=== PATIENT | male | born 1970 | race Caucasian/White ===

== ENCOUNTER 2016-09-08 22:32 | Inpatient (IN) | payer OTHER ==
[~2016-09-08 22:32] MED LIST: ACYC800T PO; BACT800T5 PO; CETI10 PO; CICL8SOL TOP; FLUC150T PO; KETO2CRE TOP; LOPE2CAP PO; SIMV10TA PO
[2016-09-08 22:50] VITALS: BP 144/92; PULSE 71; RESP 20; TEMP 98; O2SAT 97
[2016-09-09] MEDS ORDERED: LORazepam 2 MG/ML VIAL IM PRN (00:30)
[2016-09-09] MEDS ORDERED: MAGNESIUM HYDROXIDE SUSP 30 ML CUP PO PRN (00:30)
[2016-09-09] MEDS ORDERED: ACETAMINOPHEN 325 MG TAB PO PRN (00:30)
[2016-09-09] MEDS ORDERED: ALUMINUM/MAGNESIUM/SIMETH 30 ML CUP PO PRN (00:30)
[2016-09-09] MEDS: LORazepam 1 MG TAB PO PRN (00:37)
[2016-09-09 05:28] VITALS: BP 131/71; PULSE 53; RESP 17; TEMP 98; O2SAT 97
[2016-09-09 17:57] VITALS: BP 112/65; PULSE 68; RESP 16; TEMP 98.2; O2SAT 96
[2016-09-09] MEDS ORDERED: diphenhydrAMINE HCL 50 MG CAP PO PRN (18:45)
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
[2016-09-09] MEDS: QUEtiapine FUMARATE 100 MG TAB PO SCH (21:28)
[2016-09-09] MEDS: buPROPion HCL 75 MG TAB PO SCH (21:28)
[2016-09-09 22:07] LABS: BLOOD, URINE SMALL (NEG); GLUCOSE,URINE NEG (NEG); KETONE, URINE NEG (NEG); NITRITE,URINE NEG (NEG); PH, URINE 5.5 (5.0-8.5); SQUAMOUS EPITHELIAL CELL URINE <1 /hpf (0-5); URINE COLOR LIGHT-YELLOW (YELLW/STRAW)
[2016-09-09 22:12] LABS: COMMENT (UR) CULT NOT INDICATED; CULTURE IF INDICATED CULT NOT INDICATED
[2016-09-09 22:31] LABS: AMPHETAMINE, URINE NEG (NEG); BARBITURATES, URINE NEG (NEG); COCAINE, URINE NEG (NEG)
[2016-09-10 04:57] VITALS: BP 105/66; PULSE 62; RESP 18; TEMP 98; O2SAT 98
[2016-09-10] MEDS: buPROPion HCL 75 MG TAB PO SCH ×2 (08:29→21:41)
[2016-09-10 10:13] LABS: AUTOMATED NEUTROPHIL # 4.6 TH/MM3 (1.8-7.7); BASOPHIL # 0.1 TH/MM3 (0-0.2); BASOPHIL % 0.9 % (0.0-2.0); EOSINOPHIL # 0.3 TH/MM3 (0-0.4); EOSINOPHIL % 4.2 % (0.0-4.0); LYMPH % 31.1 % (9.0-44.0); LYMPHOCYTE # 2.5 TH/MM3 (1.0-4.8); MEAN CELL VOLUME 88.2 FL (80.0-100.0); MEAN CORPUSCULAR HEMOGLOBIN 29.9 PG (27.0-34.0); MEAN CORPUSCULAR HGB CONC 33.9 % (32.0-36.0); MONO % 7.9 % (0.0-8.0); NEUT % 55.9 % (16.0-70.0); PLATELET COUNT 229 TH/MM3 (150-450); RED BLOOD COUNT 5.45 MIL/MM3 (4.50-5.90); RED CELL DISTRIBUTION WIDTH 13.3 % (11.6-17.2); WHITE BLOOD COUNT 8.1 TH/MM3 (4.0-11.0)
[2016-09-10 10:26] LABS: HEMO FLAGS AUTO DIFF
[2016-09-10 10:41] LABS: BICARBONATE 26.9 MEQ/L (21.0-32.0); POTASSIUM 3.7 MEQ/L (3.5-5.1)
[2016-09-10 10:54] LABS: INDIRECT BILIRUBIN 0.3 MG/DL (0.0-0.8); TOTAL BILIRUBIN ADULT 0.4 MG/DL (0.2-1.0)
[2016-09-10 12:02] LABS: BANDS 1 % (0-6); BASOPHILS 2 % (0-2); EOSINOPHILS 8 % (0-4); MYELOCYTES 5 % (0-0); NEUTROPHIL # MANUAL DIFF 4.1 TH/MM3 (1.8-7.7); PLATELET ESTIMATE SMEAR NORMAL (NORMAL); PLATELET MORPHOLOGY NORMAL (NORMAL); POLYS (SEG NEUTROPHILS) 45 % (16-70); SCAN/DIFF FINAL DIFF MANUAL; WBC DIFF SAMPLE 100
--- NOTE | 2016-09-10 14:45 | EKG ---
Date Performed: 09/10/2016 Time Performed: 09:55:33 PTAGE: 46 years EKG: Sinus rhythm NORMAL ECG NO PREVIOUS TRACING DOCTOR: Myranda Clarke Interpretating Date/Time 09/10/2016 14:44:37
[2016-09-10 16:42] VITALS: BP 133/79; PULSE 74; RESP 18; TEMP 99.4; O2SAT 98
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
[2016-09-10] MEDS: QUEtiapine FUMARATE 100 MG TAB PO SCH (21:41)
[2016-09-11 05:22] VITALS: BP 104/64; PULSE 63; RESP 18; TEMP 97.8; O2SAT 97
[2016-09-11] MEDS: buPROPion HCL 75 MG TAB PO SCH ×2 (09:30→22:32)
[2016-09-11] MEDS: LORazepam 1 MG TAB PO PRN (12:37)
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
[2016-09-11] MEDS ORDERED: PERMETHRIN 5% CREAM 60 GM TOPICAL ONE (16:30)
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
[2016-09-11 17:52] VITALS: BP 129/79; PULSE 76; RESP 18; TEMP 97.5; O2SAT 98
[2016-09-11] MEDS: CALCIPOTRIENE 0.005% CREAM 60 GM TOPICAL SCH (21:00)
[2016-09-11 22:28] LABS: HEMOGLOBIN A1a 0.8 %; HEMOGLOBIN A1b 1.2 %; HEMOGLOBIN Ao 86.3 %; HEMOGLOBIN F 0.9 %; HEMOGLOBIN LA1C 1.2 %; HEMOGLOBIN P3 3.3 %
[2016-09-11] MEDS: QUEtiapine FUMARATE 25 MG TAB PO SCH (22:32)
[2016-09-12 06:31] VITALS: BP 102/62; PULSE 56; RESP 16; TEMP 98; O2SAT 100
[2016-09-12] MEDS: buPROPion HCL 75 MG TAB PO SCH ×2 (08:47→20:53)
[2016-09-12] MEDS: QUEtiapine FUMARATE 25 MG TAB PO SCH ×2 (08:47→20:53)
[2016-09-12] MEDS: CALCIPOTRIENE 0.005% CREAM 60 GM TOPICAL SCH ×2 (09:00→21:00)
--- NOTE | 2016-09-12 09:44 | HHI.PR ---
Subjective Remarks Patient in nad. No n/v/d/c. Itching is improved. Rash the same. Patient is depressed however would like to go out of the room. Objective Vitals Vital Signs Date Time Temp Pulse Resp B/P Pulse Ox O2 Delivery O2 Flow Rate FiO2 09/12/16 06:31 98.0 56 16 102/62 100 09/11/16 17:52 97.5 76 18 129/79 98 Result Diagram: 09/10/1619 09/10/16918 Objective Remarks GENERAL: This is a well-nourished, well-developed patient, in no apparent distress. Awake and alert. SKIN: Dry eczematous skin over the backs of both hands specifically the knuckles with scattered erythematous papular rash. Questionable intertriginous burrowing noted. Scattered erythematous papular rash over left buttock. White scaly plaque noted over the right elbow. CARDIOVASCULAR: Regular rate and rhythm without murmurs, gallops, or rubs. RESPIRATORY: Clear to auscultation. Breath sounds equal bilaterally. No wheezes , rales, or rhonchi. GASTROINTESTINAL: Abdomen soft, non-tender, nondistended. No hepato-splenomegaly , or palpable masses. No guarding. MUSCULOSKELETAL: Extremities without clubbing, cyanosis, or edema. No joint tenderness, effusion, or edema noted. No calf tenderness. NEUROLOGICAL: Awake and alert. Able to move all extremities. Normal speech. A/P Assessment and Plan 46-year-old male with a past medical history significant for prediabetes, osteoarthritis and dyslipidemia who was admitted to the psychiatric unit for suicidal ideation. Hospitalist services have been consulted for possible psoriatic plaques on the elbows and hands. Depression Suicidal ideation Management per psychiatric team Scabies Contact isolation Treated with permethrin Benadryl by mouth as needed Possible psoriatic arthritis Calcipotriene topically Follow-up with primary care physician and/or prototype machinist as outpatient. Prediabetes Obtain hemoglobin A1c Random glucose 101 Hyperlipidemia Obtain fasting lipid panel DVT prophylaxis Patient is ambulatory Thank you for this consultation. We will follow this patient along with you. Discussed Condition With Nurse, patient Ambreen Fraser MD Sep 12, 2016 09:44
--- NOTE | 2016-09-12 15:08 | HHI.PYPN ---
Subjective Remarks Patient was seen and case discussed with nursing. Patient's lab work came back with a high triglycerides of a 822. Patient is pleasant and cooperative with exam. He remains with psychomotor retardation, blunted affect and depressed mood. Says the reason for his suicide attempt was "I am a loser." He remains on isolation for possible scabies. Denies suicidal or homicidal ideation intent or plan. Auditory hallucinations to hurt himself. Mood remains depressed. Says he is sleeping well. Objective Alert: Yes [place]: Person, Place, Date, Situation Mood: Depressed Affect: Other (dysthymic) Memory Intact: Immediate, Recent, Remote Hallucinations: Auditory (command auditory hallucinations to kill himself) Delusions: No Delusion Type: Other Suicidal: Intent (denies), Plan (denies), Ideation (denies) Homicidal: Ideation (denies) Insight/Judgment Fair Labs Test 09/12/16 11:27 Triglycerides Level 822 MG/DL Cholesterol Level 239 MG/DL LDL Cholesterol MG/DL HDL Cholesterol 35.0 MG/DL Cholesterol/HDL Ratio 6.82 RATIO Vitals/IOs Vital Signs Date Time Temp Pulse Resp B/P Pulse Ox O2 Delivery O2 Flow Rate FiO2 09/12/16 06:31 98.0 56 16 102/62 100 Assessment & Plan Problem List: (1) Major depressive disorder, single episode, severe with psychotic features ICD Code: F32.3 Assessment & Plan Nursing asked to call medical team and make sure they are informed of the elevated check triglycerides. I will order an amylase and lipase. Increase Seroquel to 100 mg daily at bedtime. Justification for Cont. Inpt. Patient would decompensate in a less restrictive setting Request HC Surrog/Guard Advoc?: No Timothy Mijares DO Sep 12, 2016 15:08
[2016-09-12 17:00] VITALS: BP 125/72; PULSE 107; RESP 18; TEMP 98.9; O2SAT 96
[2016-09-12 17:42] LABS: AMYLASE 77 U/L (25-115)
[2016-09-12] MEDS ORDERED: QUEtiapine FUMARATE 100 MG TAB PO SCH (21:00)
[2016-09-13 04:44] VITALS: BP 99/59; PULSE 72; RESP 16; TEMP 97.9; O2SAT 98
[2016-09-13] MEDS: QUEtiapine FUMARATE 25 MG TAB PO SCH ×2 (08:58→20:17)
[2016-09-13] MEDS: buPROPion HCL 75 MG TAB PO SCH ×2 (08:58→20:18)
[2016-09-13] MEDS: CALCIPOTRIENE 0.005% CREAM 60 GM TOPICAL SCH ×2 (09:00→21:00)
[2016-09-13] MEDS ORDERED: ATORVASTATIN 40 MG TAB PO ONE (10:00)
[2016-09-13 10:49] LABS: BATH SALTS (MDPV) UR NEG (NEG); ECSTASY (MDMA) UR NEG (NEG); GABAPENTIN UR NEG (NEG); HEROIN (6-ACETYLMORPHINE) UR NEG (NEG); HYDROMORPHONE U NEG (NEG); K2 SPICE UR NEG (NEG); OBMETHADONE UR NEG (NEG); OXYCODONE (PERCODAN) NEG (NEG); PHENCYCLIDINE URINE NEG (NEG)
--- NOTE | 2016-09-13 13:31 | HHI.PYPN ---
Subjective Remarks Patient was seen and case discussed with nursing. Patient denies any physical complaints, denies any pain. Medicine is following patient. Patient has a delayed thought process and is very careful with his words. Affect is guarded. He makes a statement he is having ideation of hurting someone else but would not tell me who saying he feels more comfortable with the other doctor. He has fleeting suicidal thoughts with no intent or plan. His compliant with his medications and behaving well on the unit. Patient he is feeling better compared to admission, tolerated his increase in Seroquel well. Voices are telling him to kill himself and another person outside the hospital. Objective Alert: Yes [place]: Person, Place, Date, Situation Mood: Depressed Affect: Restricted Memory Intact: Immediate, Recent, Remote Hallucinations: Auditory (command auditory hallucinations to kill himself and a person outside the hospital) Delusions: No Delusion Type: Other Suicidal: Intent (denies), Plan (denies), Ideation (denies) Homicidal: Intent (denies intent), Plan (denies plan), Ideation (to hurt someone, would not specify) Insight/Judgment Poor Vitals/IOs Vital Signs Date Time Temp Pulse Resp B/P Pulse Ox O2 Delivery O2 Flow Rate FiO2 09/13/16 04:44 97.9 72 16 99/59 98 Assessment & Plan Problem List: (1) Major depressive disorder, single episode, severe with psychotic features ICD Code: F32.3 Assessment & Plan Continue current treatment plan, consider continue titration of Seroquel Justification for Cont. Inpt. Patient would decompensate in a less restrictive setting Request HC Surrog/Guard Advoc?: No Timothy Mijares DO Sep 13, 2016 13:31
[2016-09-13 16:50] VITALS: BP 126/77; PULSE 81; RESP 18; TEMP 98.6; O2SAT 98
[2016-09-13] MEDS: QUEtiapine FUMARATE 100 MG TAB PO SCH (20:17)
[2016-09-14 05:33] VITALS: BP 104/71; PULSE 74; RESP 18; TEMP 97.6; O2SAT 95
[2016-09-14] MEDS: CALCIPOTRIENE 0.005% CREAM 60 GM TOPICAL SCH ×2 (09:00→21:27)
[2016-09-14] MEDS: QUEtiapine FUMARATE 25 MG TAB PO SCH (09:00)
[2016-09-14] MEDS: ATORVASTATIN 40 MG TAB PO SCH (09:43)
[2016-09-14] MEDS: buPROPion HCL 75 MG TAB PO SCH ×2 (09:44→21:27)
--- NOTE | 2016-09-14 11:33 | HHI.PR ---
Subjective Remarks Follow up on patient with scabies, psoriasis. Patient seen and examined today. Patient reports itching has nearly resolved. Lesions have improved. He did not like the psychiatrist covering over the weekend. He denies any new medical complaints. Denies any fever or chills. Denies any chest pain or SOB. Denies any N/V or abdominal pain. Objective Vitals Vital Signs Date Time Temp Pulse Resp B/P Pulse Ox O2 Delivery O2 Flow Rate FiO2 09/14/16 05:33 97.6 74 18 104/71 95 09/13/16 16:50 98.6 81 18 126/77 98 Result Diagram: 09/10/1691809/10/16918 Objective Remarks GENERAL: This is a well-nourished, well-developed patient, in no apparent distress. Awake and alert. Sitting on bed in his room. SKIN: White scaly plaque noted over the right elbow and backs of both hands over the knuckles is much improved. Erythematous papular rash has resolved. HEENT: NC/AT. EOMI. MMM. NECK: Trachea is midline. CARDIOVASCULAR: Regular rate and rhythm without murmurs, gallops, or rubs. RESPIRATORY: Clear to auscultation. Breath sounds equal bilaterally. No wheezes , rales, or rhonchi. GASTROINTESTINAL: Abdomen soft, non-tender, nondistended. No hepato-splenomegaly , or palpable masses. No guarding. MUSCULOSKELETAL: Extremities without clubbing, cyanosis, or edema. No calf tenderness. NEUROLOGICAL: Awake and alert. Able to move all extremities. Normal speech. Medications and IVs Current Medications Medications (Trade) Dose Ordered Sig/Callum Route Start Time Stop Time Status Last Admin (Ativan) 1 mg Q6H PRN PO 09/09/16 00:30 09/11/16 12:37 (Ativan Inj) 1 mg Q6H PRN IM 09/09/16 00:30 (Tylenol) 650 mg Q4H PRN PO 09/09/16 00:30 (Milk Of Magnesia Liq) 30 ml DAILY PRN PO 09/09/16 00:30 (Mag-Al Plus Susp Liq) 30 ml Q6H PRN PO 09/09/16 00:30 (Wellbutrin) 75 mg BID PO 09/09/16 21:00 09/14/16 09:44 (Benadryl) 50 mg HS PRN PO 09/09/16 18:45 (Dovonex 0.005% Cream) 1 applic Q12HR TOPICAL 09/11/16 21:00 09/14/16 09:00 (SEROquel) 50 mg Q12HR PO 09/11/16 21:00 09/14/16 09:00 (Lipitor) 40 mg DAILY PO 09/14/16 09:00 09/14/16 09:43 (SEROquel) 200 mg HS PO 09/13/16 21:00 09/13/16 20:17 A/P Assessment and Plan 46-year-old male with a past medical history significant for prediabetes, osteoarthritis and dyslipidemia who was admitted to the psychiatric unit for suicidal ideation. Hospitalist services have been consulted for possible psoriatic plaques on the elbows and hands. Depression Suicidal ideation Management per psychiatric team Scabies Treated with permethrin Benadryl by mouth as needed Possible psoriatic arthritis Calcipotriene topically - rash improving Follow-up with primary care physician and/or process development technician as outpatient. Reported h/o prediabetes Hemoglobin A1c 5.5 No indication for treatment Hyperlipidemia Hypertriglyceridemia TG 822. TC 239. HDL 35. Patient has no abdominal complaints. Amylase 77, Lipase 220 Lengthy discussion with patient regarding elevated triglycerides. Lipitor 40mg po daily started daily. Recommended supplementing with [place] 3 fatty acids/ fish oil daily. Also recommended lifestyle modification to include decreased consumption of high fat, high cholesterol foods, increased consumption of lean protein and fresh fruits/veggies and implementation of home exercise program. Discussed concern for pancreatitis associated with hypertriglyceridemia. Patient will need to follow up with PCP in 4 to 6 weeks for reevaluation. Heart healthy diet DVT prophylaxis Patient is ambulatory. Low risk. Discussed with patient and Dr. Fraser Patient is stable from a hospitalist standpoint. Will sign off. Please reconsult if needed. Laura Green Sep 14, 2016 11:33
[2016-09-14 15:31] VITALS: BP 132/81; PULSE 77; RESP 18; TEMP 98; O2SAT 97
--- NOTE | 2016-09-14 15:44 | HHI.PYPN ---
Subjective Remarks Patient seen today with nurse Jean-Claude and medical students Josselyn and Natasha, chart review, patient compliant medications. Patient calm pleasant with us acknowledges intermittent auditory hallucinations. The hallucinations are threatening also causing increased suicidal ideation. For now continue treatment Review of Systems Except as stated in HPI: all other systems reviewed are Neg Objective Alert: Yes [place]: Person, Place, Date, Situation Mood: Depressed Affect: Restricted Memory Intact: Immediate, Recent, Remote Hallucinations: Auditory (command auditory hallucinations to kill himself and a person outside the hospital) Delusions: No Delusion Type: Other Suicidal: Intent (denies), Plan (denies), Ideation (denies) Homicidal: Intent (denies intent), Plan (denies plan), Ideation (to hurt someone, would not specify) Insight/Judgment Poor Vitals/IOs Vital Signs Date Time Temp Pulse Resp B/P Pulse Ox O2 Delivery O2 Flow Rate FiO2 09/14/16 15:31 98.0 77 18 132/81 97 Assessment & Plan Problem List: (1) Major depressive disorder, single episode, severe with psychotic features ICD Code: F32.3 Assessment & Plan Estimated LOS: days patient continues somewhat depressed psychotic and suicidal. For now continue treatment Justification for Cont. Inpt. At this time patient will decompensate with placed in the lower level of care Discharge Planning To be determined Request HC Surrog/Guard Advoc?: No Benigno Cotton MD Sep 14, 2016 15:43
[2016-09-14] MEDS: QUEtiapine FUMARATE 100 MG TAB PO SCH (21:27)
[2016-09-15 06:14] VITALS: BP 98/54; PULSE 81; RESP 16; TEMP 97.7; O2SAT 96
[2016-09-15] MEDS: CALCIPOTRIENE 0.005% CREAM 60 GM TOPICAL SCH ×2 (09:00→21:16)
[2016-09-15] MEDS ORDERED: QUEtiapine FUMARATE 100 MG TAB PO SCH (09:00)
[2016-09-15] MEDS: ATORVASTATIN 40 MG TAB PO SCH (09:12)
[2016-09-15] MEDS: buPROPion HCL 75 MG TAB PO SCH ×2 (09:12→21:16)
[2016-09-15] MEDS: QUEtiapine FUMARATE 25 MG TAB PO SCH ×2 (09:12→17:47)
[2016-09-15 15:29] VITALS: BP 146/90; PULSE 84; RESP 18; TEMP 98.3; O2SAT 97
--- NOTE | 2016-09-15 15:48 | HHI.PYPN ---
Subjective Remarks Patient seen for follow-up, chart reviewed. As per nursing report patient has been noted to be pleasant and friendly and compliant with treatment. Patient no longer in isolation as per primary medical team. Patient was seen in group was able to speak with senior underwriter and engage in interview. Instead he was visited by his and friends last Wednesday which she reported was very pleasant and enjoyed. Patient states that he has been feeling guilty about not being forthcoming to one of the reasons why he sent to the hospital initially. He states that he was using having thoughts of wanting to hurt to specific individuals that work for animal control after they had removed to kill 2 of his cats in his prior home. Patient states that he no longer has these thoughts and states that she does not want to hurt them and does not want again to get into trouble. Patient states that he is "protecting myself by telling you". Patient stated that he no longer feeling depressed as he did when he first came in that his depression is getting better he states that the medications is have been very helpful, reports tolerating them well, denies any adverse drug reactions. Patient states that he has been sleeping well, good appetite and energy and concentration, states that she no longer has been having suicidal thoughts. Patient reports that the auditory hallucinations "is eliminating" since last Wednesday. Patient reports a history and attending groups and activities which she is enjoying. Patient at this time denies any SI HI AVH and delusions. Review of Systems Except as stated in HPI: all other systems reviewed are Neg Objective Alert: Yes [place]: Person, Place, Date, Situation Mood: Calm Affect: Appropriate Memory Intact: Immediate, Recent, Remote Hallucinations: Other (denies any auditory hallucinations or visual hallucinations) Delusions: No Delusion Type: Other (denies) Suicidal: Ideation (denies) Homicidal: Ideation (denies) Insight/Judgment Improved insight, impulse control and judgment Vitals/IOs Vital Signs Date Time Temp Pulse Resp B/P Pulse Ox O2 Delivery O2 Flow Rate FiO2 09/15/16 15:29 98.3 84 18 146/90 97 Assessment & Plan Problem List: (1) Major depressive disorder, single episode, severe with psychotic features ICD Code: F32.3 Assessment & Plan Estimated LOS: 3-5 days. Patient at this time reports having improved on depressive symptoms and cessation of auditory hallucinations. Patient is now forthcoming with his initial thoughts of wanting to harm to other people prior to coming to the hospital as part of one of his psychosocial stressors are which 2 of his pets were removed and killed by animal control. Patient no longer is having these thoughts as reported by him and now is future oriented. Patient reports responding well to current treatment, denies any adverse drug reactions, we'll continue to monitor. Patient to continue on current treatment. [place] psychotherapy provided. Collateral from pending. Discharge planning and process. Justification for Cont. Inpt. Patient at risk for decompensation at lower level of care Discharge Planning In progress Request HC Surrog/Guard Advoc?: No Marco Antonio Sterling MD Sep 15, 2016 15:47
[2016-09-15] MEDS ORDERED: DOCUSATE SODIUM 100 MG CAP PO ONE (16:00)
[2016-09-15] MEDS: QUEtiapine FUMARATE 100 MG TAB PO SCH (21:16)
[2016-09-16 06:30] VITALS: BP 101/62; PULSE 85; RESP 18; TEMP 98.1; O2SAT 99
[2016-09-16] MEDS: buPROPion HCL 75 MG TAB PO SCH ×2 (08:57→21:00)
[2016-09-16] MEDS: QUEtiapine FUMARATE 25 MG TAB PO SCH ×2 (08:58→17:35)
[2016-09-16] MEDS: ATORVASTATIN 40 MG TAB PO SCH (08:58)
[2016-09-16] MEDS: CALCIPOTRIENE 0.005% CREAM 60 GM TOPICAL SCH ×2 (09:00→21:00)
[2016-09-16] MEDS: NICOTINE 21 MG/24 HR PATCH T-DERMAL SCH (17:00)
[2016-09-16 17:20] VITALS: BP 130/86; PULSE 75; RESP 18; TEMP 98.1; O2SAT 100
--- NOTE | 2016-09-16 18:25 | HHI.PYPN ---
Subjective Remarks Patient seen for follow-up, chart reviewed. As per nursing report patient continues to be pleasant although was noted to be slightly intrusive during group last night, patient reported wanting to go home and feeling better. Patient found in group was able to engage in interview with food writer. Patient states that lately has been feeling much better, reports very little auditory hallucinations but also reports that these may be just his thoughts and usually occur when he is alone. He states that he has been feeling well with the current medication regimen is feeling depressed or suicidal, and states that he is now looking forward to go home and continuing his life. Patient states that he no longer has thoughts of wanting to hurt these 2 individuals from animal control went killed his cats and states that he is looking forward to living his life and letting God. The judicial law clerk of others' actions. Patient requesting nicotine patch for nicotine craving. Patient this time denies SI, HI, AVH or delusions. Review of Systems Except as stated in HPI: all other systems reviewed are Neg Objective Alert: Yes [place]: Person, Place, Date, Situation Mood: Calm Affect: Appropriate Memory Intact: Immediate, Recent, Remote Hallucinations: Other (denies any auditory hallucinations or visual hallucinations) Delusions: No Delusion Type: Other (denies) Suicidal: Ideation (denies) Homicidal: Ideation (denies) Insight/Judgment Fair insight, impulse control and judgment Vitals/IOs Vital Signs Date Time Temp Pulse Resp B/P Pulse Ox O2 Delivery O2 Flow Rate FiO2 09/16/16 17:20 98.1 75 18 130/86 100 Assessment & Plan Problem List: (1) Major depressive disorder, single episode, severe with psychotic features ICD Code: F32.3 Assessment & Plan Estimated LOS: 2-3 days. Patient at this time denies any depressive symptoms, denies any suicidality at this time. Patient reports responding well to current treatment regimen and is future oriented. Patient likely to be discharged tomorrow back to his along with being connected with outpatient follow-up which he agrees to along with adherence to medications. Continue current treatment regimen. Monitor medication response and adverse drug reactions, supportive psychotherapy provided. Discharge planning in progress Justification for Cont. Inpt. Patient was for decompensation at lower level of care Discharge Planning In progress Request HC Surrog/Guard Advoc?: No Marco Antonio Sterling MD Sep 16, 2016 18:25
[2016-09-16] MEDS: QUEtiapine FUMARATE 100 MG TAB PO SCH (21:00)
[2016-09-16] MEDS: LORazepam 1 MG TAB PO PRN (21:00)
[2016-09-17 05:24] VITALS: BP 102/63; PULSE 82; RESP 18; TEMP 97.9; O2SAT 98
[2016-09-17] MEDS: CALCIPOTRIENE 0.005% CREAM 60 GM TOPICAL SCH (09:00)
[2016-09-17] MEDS ORDERED: REMOVE OLD PATCH T-DERMAL SCH (09:00)
[2016-09-17] MEDS: QUEtiapine FUMARATE 25 MG TAB PO SCH (09:09)
[2016-09-17] MEDS: buPROPion HCL 75 MG TAB PO SCH (09:09)
[2016-09-17] MEDS: ATORVASTATIN 40 MG TAB PO SCH (09:10)
[2016-09-17] MEDS: NICOTINE 21 MG/24 HR PATCH T-DERMAL SCH (09:11)
[2016-09-17] MEDS ORDERED: BUPR75TA PO (09:42)
[2016-09-17] MEDS ORDERED: QUET1TAB10 PO (09:42)
[2016-09-17] MEDS ORDERED: ATOR40TA16 PO (09:42)
[2016-09-17] MEDS ORDERED: NICO21DI25 T-DERMAL (09:42)
[2016-09-17] MEDS ORDERED: CALC.005%T TOPICAL (09:42)
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
== END 2016-09-17 14:00 | disposition home or self-care (01) | DRG 885 ==
LOC: H260 09-09 00:10
PROVIDERS: ADMIT Student in an Organized Health Care Education/Training Program; ATTEND Student in an Organized Health Care Education/Training Program
DX: F32.3 Major depressive disorder, single episode, severe with psychotic features (principal); R45.851 Suicidal ideations; R45.850 Homicidal ideations; B86 Scabies; E78.5 Hyperlipidemia, unspecified; F12.90 Cannabis use, unspecified, uncomplicated; L29.9 Pruritus, unspecified; L40.9 Psoriasis, unspecified; R73.03 Prediabetes; Z62.810 Personal history of physical and sexual abuse in childhood; Z79.899 Other long term (current) drug therapy; Z81.8 Family history of other mental and behavioral disorders; Z87.891 Personal history of nicotine dependence; Z91.5 Personal history of self-harm
CPT/HCPCS: 80048; 80061; 80076; 80307; 81001; 82150; 83036; 83690; 84443; 85007; 85027; 93005; G0481; Q0163

== ENCOUNTER 2017-05-16 16:01 | Inpatient (IN) | payer OTHER ==
[~2017-05-16] VITALS: Ht 177.8 cm; Wt 87.9 kg
[~2017-05-16 16:01] MED LIST changes: +ATOR40TA16 PO; +BUPR75TA PO; +CALC.005%T TOPICAL; +NICO21DI25 T-DERMAL; +QUET1TAB10 PO
[2017-05-16 16:35] VITALS: BP 134/83; PULSE 75; RESP 18; TEMP 98.7; O2SAT 99
[2017-05-16 17:42] LABS: AUTOMATED NEUTROPHIL # 5.4 TH/MM3 (1.8-7.7); BASOPHIL # 0.1 TH/MM3 (0-0.2); BASOPHIL % 0.7 % (0.0-2.0); EOSINOPHIL # 0.3 TH/MM3 (0-0.4); EOSINOPHIL % 3.5 % (0.0-4.0); HEMATOCRIT 44.8 % (39.0-51.0); HEMOGLOBIN 15.7 GM/DL (13.0-17.0); LYMPHOCYTE # 2.2 TH/MM3 (1.0-4.8); MEAN CORPUSCULAR HEMOGLOBIN 30.4 PG (27.0-34.0); MEAN CORPUSCULAR HGB CONC 34.9 % (32.0-36.0); MEAN PLATELET VOLUME 8.9 FL (7.0-11.0); MONO % 6.8 % (0.0-8.0); MONOCYTE # 0.6 TH/MM3 (0-0.9); PLATELET COUNT 245 TH/MM3 (150-450); RED BLOOD COUNT 5.16 MIL/MM3 (4.50-5.90); RED CELL DISTRIBUTION WIDTH 13.5 % (11.6-17.2); WHITE BLOOD COUNT 8.6 TH/MM3 (4.0-11.0)
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
[2017-05-16 18:03] LABS: ALBUMIN 3.9 GM/DL (3.4-5.0); ALT (GPT) 36 U/L (12-78); BICARBONATE 28.1 MEQ/L (21.0-32.0); BLOOD UREA NITROGEN 19 MG/DL (7-18); CALCIUM 8.5 MG/DL (8.5-10.1); CHLORIDE 104 MEQ/L (98-107); CREATININE 1.45 MG/DL (0.60-1.30); GLOMERULAR FILTRATION RATE 52 ML/MIN (>89); GLUCOSE,RANDOM 88 MG/DL (74-106); SODIUM (NA) 140 MEQ/L (136-145)
[2017-05-16 18:04] LABS: ACETAMINOPHEN LESS THAN 2.0 MCG/ML (10.0-30.0)
[2017-05-16 18:13] LABS: ALKALINE PHOSPHATASE 88 U/L (45-117); AST (GOT) 24 U/L (15-37); TOTAL BILIRUBIN ADULT 0.3 MG/DL (0.2-1.0); TOTAL PROTEIN 7.7 GM/DL (6.4-8.2)
[2017-05-16 21:48] VITALS: BP 138/84; PULSE 70; RESP 20; O2SAT 97
[2017-05-17] MEDS ORDERED: IBUPROFEN 600 MG TAB PO ONE (00:30)
[2017-05-17] MEDS ORDERED: diphenhydrAMINE HCL 50 MG CAP PO ONE (00:30)
[2017-05-17] MEDS ORDERED: LORazepam 1 MG TAB PO PRN (06:15)
[2017-05-17] MEDS ORDERED: ALUMINUM/MAGNESIUM/SIMETH 30 ML CUP PO PRN (06:15)
[2017-05-17] MEDS ORDERED: ACETAMINOPHEN 325 MG TAB PO PRN (06:15)
[2017-05-17] MEDS ORDERED: LORazepam 2 MG/ML VIAL IM PRN (06:15)
[2017-05-17] MEDS ORDERED: MAGNESIUM HYDROXIDE SUSP 30 ML CUP PO PRN (06:15)
[2017-05-17] MEDS ORDERED: diphenhydrAMINE HCL 50 MG CAP PO PRN (06:15)
[2017-05-17] MEDS ORDERED: diphenhydrAMINE HCL 50 MG/ML VIAL IM PRN (06:15)
[2017-05-17] MEDS ORDERED: diphenhydrAMINE HCL 50 MG/ML VIAL - HS PRN IM (06:15)
[2017-05-17] MEDS ORDERED: diphenhydrAMINE HCL 50 MG CAP - HS PRN PO (06:15)
[2017-05-17] MEDS: ATORVASTATIN 40 MG TAB PO SCH (09:00)
[2017-05-17] MEDS: NICOTINE 21 MG/24 HR PATCH T-DERMAL SCH (09:00)
[2017-05-17 11:50] VITALS: BP 131/77; PULSE 72; RESP 18; TEMP 98.3
[2017-05-17] MEDS ORDERED: hydrOXYzine HCL 50 MG TAB PO PRN (14:45)
[2017-05-17] MEDS ORDERED: buPROPion HCL 150 MG EXTENDED RELEASE TAB PO SCH (14:45)
[2017-05-17] MEDS ORDERED: buPROPion HCL 150 MG SUSTAINED RELEASE TAB PO SCH (15:00)
[2017-05-17] MEDS: buPROPion HCL 150 MG SUSTAINED RELEASE TAB PO SCH (15:47)
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
[2017-05-17] MEDS ORDERED: QUEtiapine FUMARATE 100 MG TAB PO SCH (21:00)
[2017-05-17] MEDS ORDERED: QUEtiapine FUMARATE 300 MG TAB PO SCH (21:00)
[2017-05-17] MEDS: REMOVE OLD NICOTINE PATCH T-DERMAL SCH (21:00)
[2017-05-17] MEDS: PRAVASTATIN SOD 20 MG TAB PO SCH (21:39)
[2017-05-18 06:00] VITALS: BP 108/75; PULSE 72; RESP 18; TEMP 97.4; O2SAT 96
[2017-05-18] MEDS: NICOTINE 21 MG/24 HR PATCH T-DERMAL SCH (08:32)
[2017-05-18] MEDS: buPROPion HCL 150 MG SUSTAINED RELEASE TAB PO SCH (08:32)
[2017-05-18] MEDS: ATORVASTATIN 40 MG TAB PO SCH (08:32)
[2017-05-18 08:46] LABS: BICARBONATE 26.1 MEQ/L (21.0-32.0); BLOOD UREA NITROGEN 16 MG/DL (7-18); CALCIUM 8.9 MG/DL (8.5-10.1); CHLORIDE 106 MEQ/L (98-107); GLOMERULAR FILTRATION RATE 72 ML/MIN (>89); GLUCOSE,RANDOM 97 MG/DL (74-106); SODIUM (NA) 138 MEQ/L (136-145)
[2017-05-18 08:47] LABS: CHOLESTEROL 207 MG/DL (120-200); TRIGLYCERIDES 446 MG/DL (42-150)
[2017-05-18 08:49] LABS: CHOLESTEROL/ HDL RATIO 6.33 RATIO; HDL CHOLESTEROL 32.7 MG/DL (40.0-60.0)
[2017-05-18] MEDS ORDERED: PNEUMOCOCCAL POLYVALENT INJ 25 MCG/0.5 ML SYR IM ONE (10:00)
[2017-05-18] MEDS ORDERED: INFLUENZA VIRUS VACCINE (QUADRIVALENT) 0.5 ML SYR IM ONE (10:00)
[2017-05-18] MEDS: CALCIPOTRIENE 0.005% CREAM 60 GM TOPICAL SCH ×2 (11:30→20:26)
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
[2017-05-18 17:18] LABS: HEMOGLOBIN A1C 5.3 % (4.3-6.0)
--- NOTE | 2017-05-18 17:35 | HHI.PYPN ---
Subjective Remarks Patient seen for follow-up, chart reviewed. Discussion with nursing staff reported that the patient noted to have improved mood. Patient was found in day room, calm and cooperative with interview. Patient states that he slept better, mood better today, less depressed, not endorsing SI today, lessening of AH. Review of Systems Except as stated in HPI: all other systems reviewed are Neg Mental Status Examination Appearance: Appropriate Consciousness: Alert Orientation: Person, Place, Date/Time Motor Activity: Normal gait Speech: Unremarkable Language: Adequate Fund of Knowledge: Inadequate Attention and Concentration: Adequate Memory: Unremarkable Mood: Sad (less today) Affect: Sad (less today) Thought Process & Associations: Intact, Linear Thought Content: Hallucinations Hallucination Type: Auditory Delusion Type: Paranoid Suicidal Ideation: Yes Suicidal Plan: No Suicidal Intention: No Homicidal Ideation: Yes (toward person from animal control) Homicidal Plan: No Homicidal Intention: No Insight: Fair Judgment: Impulsive Results Labs labs reviewed Test 05/18/17 07:28 Blood Urea Nitrogen 16 MG/DL Creatinine 1.10 MG/DL Random Glucose 97 MG/DL Calcium Level 8.9 MG/DL Sodium Level 138 MEQ/L Potassium Level 4.0 MEQ/L Chloride Level 106 MEQ/L Carbon Dioxide Level 26.1 MEQ/L Anion Gap 6 MEQ/L Estimat Glomerular Filtration Rate 72 ML/MIN Triglycerides Level 446 MG/DL Cholesterol Level 207 MG/DL LDL Cholesterol MG/DL HDL Cholesterol 32.7 MG/DL Cholesterol/HDL Ratio 6.33 RATIO Vitals/IOs Vital Signs Date Time Temp Pulse Resp B/P (MAP) Pulse Ox O2 Delivery O2 Flow Rate FiO2 05/18/17 06:00 97.4 72 18 108/75 (86) 96 05/16/17 21:48 Room Air Intake and Output 05/18/17 05/18/17 05/19/17 08:00 16:00 00:00 Intake Total 720 ml Balance 720 ml Assessment & Plan Problem List: (1) Major depressive disorder, recurrent episode, severe, with psychosis ICD Codes: F33.3 - Major depressive disorder, recurrent, severe with psychotic symptoms Assessment & Plan Patient continues to feel depressed but reporting improvement in mood, denies SI , decreasing AH. Will increase Seroquel 200mg PO HS, continue Wellbutrin XL 150mg PO daily, continue to monitor mood and behavior. Discharge planning in progress. Justification for Cont. Inpt. At risk for further decompensation at lower level of care. Discharge Planning Patient to return back to rented room Marco Antonio Sterling MD May 18, 2017 17:35
[2017-05-18 18:16] VITALS: BP 124/69; PULSE 74; RESP 18; TEMP 98.4; O2SAT 96
[2017-05-18] MEDS: QUEtiapine FUMARATE 100 MG TAB PO SCH (20:24)
[2017-05-18] MEDS: PRAVASTATIN SOD 20 MG TAB PO SCH (20:24)
[2017-05-18] MEDS: REMOVE OLD NICOTINE PATCH T-DERMAL SCH (20:25)
[2017-05-19] MEDS: ATORVASTATIN 40 MG TAB PO SCH (08:54)
[2017-05-19] MEDS: buPROPion HCL 150 MG SUSTAINED RELEASE TAB PO SCH (08:54)
[2017-05-19] MEDS: CALCIPOTRIENE 0.005% CREAM 60 GM TOPICAL SCH ×2 (08:55→20:15)
[2017-05-19] MEDS: NICOTINE 21 MG/24 HR PATCH T-DERMAL SCH (09:00)
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
[2017-05-19 17:14] VITALS: BP 117/68; PULSE 66; RESP 18; TEMP 97.8; O2SAT 99
--- NOTE | 2017-05-19 20:06 | HHI.PYPN ---
Subjective Remarks Patient seen for follow up; chart reviewed. Discussion with nursing staff reported that patient denying AH, improved mood. Patient found ambulating on the unit, calm and cooperative. He states feeling "good", reports feeling less depressed, sleeping well, less suicidal ideation and denies any homicidal ideation today. He was counseled on importance of abstinence from substance use. He states being interested in affordable housing. Review of Systems Except as stated in HPI: all other systems reviewed are Neg Mental Status Examination Appearance: Disheveled Consciousness: Alert Orientation: Person, Place, Date/Time Motor Activity: Normal gait Speech: Unremarkable Language: Adequate Fund of Knowledge: Inadequate Attention and Concentration: Adequate Memory: Unremarkable Mood: Good Affect: Sad (less so today) Thought Process & Associations: Linear Thought Content: Hallucinations Hallucination Type: Auditory (denies today) Delusion Type: None Suicidal Ideation: Yes (denies today) Suicidal Plan: No Suicidal Intention: No Homicidal Ideation: Yes (denies today) Homicidal Plan: No Homicidal Intention: No Insight: Fair Judgment: Impulsive Results Vitals/IOs Vital Signs Date Time Temp Pulse Resp B/P (MAP) Pulse Ox O2 Delivery O2 Flow Rate FiO2 05/19/17 17:14 97.8 66 18 117/68 (84) 99 05/16/17 21:48 Room Air Assessment & Plan Problem List: (1) Major depressive disorder, recurrent episode, severe, with psychosis ICD Codes: F33.3 - Major depressive disorder, recurrent, severe with psychotic symptoms Assessment & Plan Patient with improvement in mood, denies SI or AH today. Continues to be noted to be disheveled. Continue current treatment and monitor mood and behavior. Discharge planning in progress. Justification for Cont. Inpt. At risk for further decompensation at lower level of care. Marco Antonio Sterling MD May 19, 2017 20:06
[2017-05-19] MEDS: PRAVASTATIN SOD 20 MG TAB PO SCH (20:13)
[2017-05-19] MEDS: QUEtiapine FUMARATE 100 MG TAB PO SCH (20:13)
[2017-05-19] MEDS: REMOVE OLD NICOTINE PATCH T-DERMAL SCH (20:15)
--- NOTE | 2017-05-19 21:38 | EKG ---
Date Performed: 05/18/2017 Time Performed: 13:41:30 PTAGE: 47 years EKG: Sinus rhythm NORMAL ECG PREVIOUS TRACING : 09/10/2016 09.55 Since the previous tracing, no significant change noted DOCTOR: Josué Man Interpretating Date/Time 05/19/2017 21:36:48
[2017-05-20] MEDS: NICOTINE 21 MG/24 HR PATCH T-DERMAL SCH (07:29)
[2017-05-20] MEDS: CALCIPOTRIENE 0.005% CREAM 60 GM TOPICAL SCH (09:00)
[2017-05-20] MEDS: buPROPion HCL 150 MG SUSTAINED RELEASE TAB PO SCH (09:21)
[2017-05-20] MEDS: ATORVASTATIN 40 MG TAB PO SCH (09:21)
[2017-05-20] MEDS ORDERED: CALC.005%T TOPICAL (11:08)
[2017-05-20] MEDS ORDERED: BUPR150CR PO (11:08)
[2017-05-20] MEDS ORDERED: ATOR40TA16 PO (11:08)
[2017-05-20] MEDS ORDERED: QUET1TAB9 PO (11:08)
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
== END 2017-05-20 13:32 | disposition home or self-care (01) | DRG 885 ==
LOC: NEPD 16:01 → NEDA 05-17 05:49 → H260 05-17 08:40
PROVIDERS: ADMIT Student in an Organized Health Care Education/Training Program; ATTEND Student in an Organized Health Care Education/Training Program
DX: F33.3 Major depressive disorder, recurrent, severe with psychotic symptoms (principal); N17.9 Acute kidney failure, unspecified; R45.850 Homicidal ideations; R45.851 Suicidal ideations; Z91.14 Patient's other noncompliance with medication regimen; R21 Rash and other nonspecific skin eruption; R73.03 Prediabetes; F41.9 Anxiety disorder, unspecified; L40.9 Psoriasis, unspecified; E78.5 Hyperlipidemia, unspecified; F14.90 Cocaine use, unspecified, uncomplicated; F12.90 Cannabis use, unspecified, uncomplicated; F17.210 Nicotine dependence, cigarettes, uncomplicated; M19.90 Unspecified osteoarthritis, unspecified site; Z59.0 Homelessness; Z23 Encounter for immunization; Z91.5 Personal history of self-harm
CPT/HCPCS: 80048; 80053; 80061; 80307; 83036; 84443; 85025; 90686; 90732; 93005; 99285; Q0163; Q2038